=== PATIENT | male | born 1985 | race Caucasian/White ===

== ENCOUNTER 2025-01-09 10:10 | Emergency (ER) | payer OTHER ==
[2025-01-09 10:24] VITALS: BP 113/56; PULSE 67; RESP 16; TEMP 98.3; BMI 55.3
[2025-01-09] MEDS ORDERED: ACETAMINOPHEN INJECTION 100 ML ONE (12:51)
[2025-01-09 12:59] LABS: ABSOLUTE IMMATURE GRANULOCYTES 0.02 x10^3/uL (0.0-0.031); BASOPHILS # 0.02 x10^3/uL (0.01-0.08); EOSINOPHILS # 0.13 x10^3/uL (0.04-0.54); HEMATOCRIT 39.8 % (40.1-51.0); HEMOGLOBIN 12.7 g/dL (13.7-17.5); MCHC 31.9 g/dl (32.3-36.5); MEAN PLT VOLUME 10.4 fl (9.4-12.4); MONOCYTE # 0.59 x10^3/uL (0.30-0.82); PLATELET COUNT 304 x10^3/uL (163-337); RDW 18.4 % (12.0-15.6)
[2025-01-09] MEDS: ACETAMINOPHEN 1000 MG/100 ML BAG IVPB ONE (12:59)
[2025-01-09 13:30] LABS: ALBUMIN 3.3 g/dl (3.4-5.0); CALCIUM 8.9 mg/dL (8.5-10.1)
[2025-01-09 13:31] LABS: BLOOD UREA NITROGEN 9.2 mg/dL (7-18)
[2025-01-09 13:34] LABS: CREATININE 0.7 mg/dL (0.55-1.3)
[2025-01-09 13:35] LABS: BILIRUBIN,TOTAL 0.4 mg/dL (0.2-1); TOT PROT 6.9 g/dl (6.4-8.2)
[2025-01-09 13:42] LABS: EPI CELLS 6 /uL (0-25.1); HYALINE CASTS 0 /uL (0-3.1); PH,URINE 5.5 (5.0-8.0); URINE APPEARANCE TURBID; URINE BACTERIA 2 /uL (0-1359); URINE BILIRUBIN 1+ (NEGATIVE); URINE COLOR ORANGE; URINE GLUCOSE (UA) NEGATIVE (NEGATIVE); URINE KETONE NEGATIVE (NEGATIVE); URINE LEUK ESTERASE 1+ (NEGATIVE); URINE NITRITE NEGATIVE (NEGATIVE); URINE PROTEIN 2+ (NEGATIVE); URINE RBC 1342 /uL (0-23.9); URINE WBC 29 /uL (0-25.8)
[2025-01-09] MEDS ORDERED: KETOROLAC TROMETHAMINE 15 MG/ML VIAL ONE (16:34)
[2025-01-09] MEDS: KETOROLAC TROMETHAMINE 15 MG/ML VIAL IVPUSH ONE (17:04)
== END 2025-01-09 18:41 | disposition home or self-care (01) ==
LOC: JER 10:10
PROC: 3E033NZ Introduction of Analgesics, Hypnotics, Sedatives into Peripheral Vein, Percutaneous Approach (ICD-10-PCS; principal; 2025-01-09)
PROC: 3E0333Z Introduction of Anti-inflammatory into Peripheral Vein, Percutaneous Approach (ICD-10-PCS; 2025-01-09)
DX: N13.2 Hydronephrosis with renal and ureteral calculous obstruction (principal); K92.1 Melena; R10.32 Left lower quadrant pain
CPT/HCPCS: 36415; 74177-TC; 80053; 81003; 83735; 85025; 87086; 96374; 96375; 99285-25; J0131; Q9967

== ENCOUNTER 2025-01-11 01:10 | Emergency (ER) | payer OTHER ==
[2025-01-11 01:22] VITALS: BP 120/65; PULSE 66; RESP 16; TEMP 98.1; BMI 55.3
[2025-01-11] MEDS ORDERED: TAMSULOSIN HCL 0.4 MG CAP ONE (02:46)
[2025-01-11] MEDS ORDERED: ACETAMINOPHEN 500 MG TABLET (FP) ONE (02:47)
[2025-01-11] MEDS: ACETAMINOPHEN 500 MG TABLET (FP) PO ONE (02:53)
[2025-01-11] MEDS: TAMSULOSIN HCL 0.4 MG CAP PO ONE (02:53)
[2025-01-11 03:00] LABS: HEMATOCRIT 38.6 % (40.1-51.0); HEMOGLOBIN 12.1 g/dL (13.7-17.5); MCHC 31.3 g/dl (32.3-36.5); MEAN CELL VOLUME 78.5 fl (79.0-92.2); MEAN PLT VOLUME 10.4 fl (9.4-12.4); PLATELET COUNT 290 x10^3/uL (163-337); RDW 18.3 % (12.0-15.6)
[2025-01-11 03:19] LABS: EPI CELLS 2 /uL (0-25.1); HYALINE CASTS 0 /uL (0-3.1); PH,URINE 5.5 (5.0-8.0); URINE APPEARANCE CLEAR; URINE BACTERIA 1 /uL (0-1359); URINE BILIRUBIN NEGATIVE (NEGATIVE); URINE COLOR YELLOW; URINE GLUCOSE (UA) NEGATIVE (NEGATIVE); URINE KETONE NEGATIVE (NEGATIVE); URINE LEUK ESTERASE NEGATIVE (NEGATIVE); URINE NITRITE NEGATIVE (NEGATIVE); URINE PROTEIN NEGATIVE (NEGATIVE); URINE RBC 238 /uL (0-23.9); URINE UROBILINOGEN 0.2 mg/dL (0.2-1.0); URINE WBC 4 /uL (0-25.8)
[2025-01-11 03:32] LABS: CALCIUM 8.8 mg/dL (8.5-10.1)
[2025-01-11 03:33] LABS: BLOOD UREA NITROGEN 15.2 mg/dL (7-18)
[2025-01-11 03:36] LABS: CREATININE 0.8 mg/dL (0.55-1.3)
== END 2025-01-11 04:11 | disposition home or self-care (01) ==
LOC: JER 01:10
DX: N20.1 Calculus of ureter (principal); R31.9 Hematuria, unspecified; R30.0 Dysuria; R14.0 Abdominal distension (gaseous)
CPT/HCPCS: 36415; 80048; 81003; 85025; 87086; 99283-25